=== PATIENT | male | born 1955 | race Caucasian/White ===

== ENCOUNTER 2025-06-25 11:27 | Outpatient (AMB) | payer MEDICARE, OTHER, SELFPAY ==
--- OUTSIDE RECORDS SUMMARY | 2025-06-23 07:45 | XMS_ITS | Encounter Summary ---
Author Organization [facility] Address [address] [place] [address] Care Team Providers Care Pastry Cook Apprentice Name Role Phone Go Garland MD Primary Care Provider Reason for Visit * Reason Comments Follow-up 6 weeks DM follow up Encounter Details Date Type Department Care Team (Late st Contact Info) Description 06/23/2025 7:45 AM EST Office Visit Endocrinology - [place] [address] [place] [address] Chasity Pham PA [address] [place] [address] Type 2 diabetes mellitus with neurological manifestations, controlled (CMS/HCC V24, CMS/HCC V28) (Primary Dx); Hypothyroidism, unspecified type; Hypertension, unspecified type; Morbid obesity (CMS/HCC V24, CMS/HCC V28) Social History Tobacco Use Types Packs/Day Years Used Date Smoking Tobacco: Former Cigarettes 2 46.5 0 1965 - 07/31/2011 Smokeless Tobacco: Never Alcohol Use Standard Drinks/Week Comments Yes 0 (1 standard drink = 0.6 oz pur e alcohol) Housing Instability Answer Date Recorde d Are you worried that in the next 2 months you may not have stable housing? No 11/01/2024 Food Access & Nutrition Answer Date Rec orded Do you have access to a vari ety of food including fruits and vegetables? Yes 11/01/2024 Health Literacy Answer Date Recorded How often do you need to hav e someone help you when you read instructions, pamphlets, or other written material from your doctor or pharmacy? Never 11/01/2024 Caregiver: How often do you need to have someone help you when you read instructions, pamphlets, or other written material from your doctor or pharmacy? Not on file 11/01/2024 Financial Risk Answer Date Recorded How hard is it for you to pa y for the very basics like food, housing, medical care, and air conditioning / heating? Not very hard 11/01/2024 Transportation Answer Date Recorded Has the lack of transportati on kept you from meetings, work, or from getting things needed for daily living? No Has the lack of transportati on kept you from medical appointments or from getting medications? No 11/01/2024 Social Isolation Answer Date Recorded How often do you feel lonely or isolated from th ose around you? Never 11/01/2024 Food Risk Answer Date Recorded Within the past 12 months we worried whether our food would run out before we got money to buy more. Never true 11/01/2024 Within the past 12 months th e food we bought just didn't last and we didn't have money to get more. Never true 11/01/2024 Dependent Care Answer Date Recorded Do you need help finding or paying for care for your loved ones. For example, childhood teacher or elderly care for an older adult? No 11/01/2024 Education Answer Date Recorded Do you think completing more education or training, like finishing a GED, going to college, or learning a trade, would be helpful for you? No 11/01/2024 Employment and Income Answer Date Recor ded During the last four weeks, have you been actively looking for work? No 11/01/2024 Living Situation Answer Date Recorded What is your living situation? Unrecognized valu e 11/01/2024 Sex and Gender Information Value Date Recorded Sex Assigned at Not on file Legal Sex Male 7:59 PM EST Gender Identity Not on file Sexual Orientation Not on file documented as of this encounter Last Filed Vital Signs Vital Sign Reading Time Taken Comments Blood Pressure 118/69 06/23/2025 7:54 AM EST Pulse 68 06/23/2025 7:54 AM EST Temperature - - Respiratory Rate - - Oxygen Saturation - - Inhaled Oxygen Concentration - - Weight 111 kg (245 lb) 06/23/2025 7:54 AM EST Height - - Body Mass Index 34.17 04/17/2025 8:56 AM EDT documented in this encounter Progress Notes * TIFFANY Edwards - 06/23/2025 7:45 AM EST CHIEF COMPLAINT: Follow-up (6 weeks DM follow up ) IDENTIFIER: Tyson Matt is a 70 y.o. old male HPI: Patient is a 70-year-old male presents today for diabetes Follow up. With diabetes type 2. Has not used insulin therapy in the past Has been a diabetic for more than 5 years. Some family history of type 2 diabetes Denies any recent hospitalization as a result of diabetes, no pancreatitis, gastroparesis. Also with hypertension, paroxysmal atrial fibrillation, morbid obesity, GERD, nephrolithiasis, COPD/asthma. Current diabetic regimen: Metformin 1000 mg once daily Ozempic 2mg one weekly Did not tolerate Mounjaro well, due to constipation. He lost 5 pounds within a week after starting medication. He wants to consider going back on Mounjaro however wishes to hold off until next year. Patient has not been checking sugars routinely. A1c of 6.3% 2 months ago. Current was reading at 137, patient had coffee this morning. BMI 35.17, patient would like to lose more weight. He asks about Mounjaro. Does not work formally exercise but active during the day. Hypertension treated with amlodipine, olmesartan. BP today at 118/69 Not on statins. LDL at 85 with a total cholesterol of 194 Subclinical hypothyroidism- not on levothyroxine. Lab Results Component Value Date TSH 2.75 04/17/2025 Lab Results Component Value Date HGBA1C 6.3 04/17/2025 ROS: GENERAL: No malaise HEENT: No changes in hearing or vision RESPIRATORY: No cough, wheezing or shortness of breath CARDIOVASCULAR: No chest pain, leg swelling or palpitations GI: No abdominal discomfort ENDO: see HPI NEURO: No persistent headache, syncope PAST MEDICAL HISTORY: Patient Active Problem List Diagnosis Date Noted COVID 09/29/2024 Cervical spinal stenosis 06/12/2023 DISH (diffuse idiopathic skeletal hyperostosis) 09/12/2022 Hypothyroidism 06/03/2022 Ribs, multiple fractures 10/19/2021 Cervical radiculopathy 03/25/2021 Nontraumatic complete tear of right rotator cuff 04/27/2020 Chronic patellofemoral pain of right knee 03/31/2020 Traumatic complete tear of right rotator cuff 01/13/2020 Lumbar radicular pain 12/30/2019 Allergic rhinitis 07/18/2019 Arthritis of right ankle 04/11/2019 Arthritis of knee, right 11/29/2018 Primary osteoarthritis of both knees 11/13/2018 Vitamin deficiency 09/18/2018 Type 2 diabetes mellitus with neurological manifestations, controlled ([facility] V24, [facility] V28) 02/28/2018 Hematuria, microscopic 05/08/2015 Asthma 12/09/2014 Diverticulosis 12/09/2014 Hypertension 12/09/2014 Morbid obesity ([facility] V24, [facility] V28) 12/09/2014 PAF (paroxysmal atrial fibrillation) ([facility] V24, [facility] V28) 12/09/2014 COPD (chronic obstructive pulmonary disease) ([facility] V24, [facility] V28) 10/21/2014 GERD (gastroesophageal reflux disease) 10/21/2014 Hemothorax on right 10/21/2014 Nephrolithiasis 10/21/2014 Past Surgical History: Procedure Laterality Date COLONOSCOPY KNEE SURGERY Right PROCEDURE: HISTORICAL KNEE SURGERY OTHER SURGICAL HISTORY PROCEDURE: PUNCTURE, DRAINAGE OF CHEST TONSILLECTOMY PROCEDURE: HISTORICAL TONSILLECTOMY TURP / TRANSURETHRAL INCISION / DRAINAGE PROSTATE PROCEDURE: HISTORICAL TURP; COMMENT: 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 SOCIAL HISTORY: Social History Tobacco Use Smoking status: Former Current packs/day: 0.00 Average packs/day: 2.0 packs/day for 46.5 years (93.0 ttl pk-yrs) Types: Cigarettes Start date: 1965 Quit date: 07/31/2011 Years since quittin.9 Smokeless tobacco: Never Substance Use Topics Alcohol use: Yes FAMILY HISTORY: Family History Problem Relation Name Age of Onset Parkinson's Disease Mother Diabetes Father 39 Stroke at 39 Diabetes Sister half sisters x 4 No Known Problems Son Coronary artery disease Maternal Grandfather Liver cancer Aunt Family Status Relation Name Status Mother Alive Father Sister half sisters x 4 Alive x4 Son Alive MGF (Not Specified) Aunt (Not Specified) No partnership data on file MEDICATIONS DISCONTINUED/REORDERED: There are no discontinued medications. ACTIVE MEDICATIONS: Outpatient Medications Marked as Taking for the 06/23/25 encounter (Office Visit) with TIFFANY Edwards Medication Sig Dispense Refill albuterol 2.5 mg /3 mL (0.083 %) nebulizer solution Take 1 Vial by nebulization every 4 hours as needed for Wheezing or Shortness of Breath for up to 30 days. albuterol HFA (PROAIR HFA ; PROVENTIL HFA ; VENTOLIN HFA) 90 mcg/actuation inhaler Inhale 2 puffs into the lungs. blood-glucose sensor (HoppitStyle Cris 3 Plus Sensor) device Change sensor every 15 days. Not covered by insurance, will pay out of pocket, will use coupon 2 each 11 levalbuterol (XOPENEX) 0.63 mg/3 mL nebulizer solution Take 1 Ampule by nebulization every 4 hours as needed for Wheezing. lisinopriL (PRINIVIL,ZESTRIL) 5 mg tablet TAKE 1 TABLET BY MOUTH 1 TIME EACH DAY. 90 tablet 1 metFORMIN (GLUCOPHAGE) 1,000 mg tablet TAKE 1 TABLET BY MOUTH TWICE DAILY WITH MEALS 180 tablet 3 metoprolol succinate (TOPROL-XL) 25 mg 24 hr tablet Take 0.5 tablets (12.5 mg total) by mouth 1 (one) time each day. Do not crush or chew. omeprazole (PriLOSEC) [address] capsule Take 1 capsule (20 mg total) by mouth 1 (one) time each day. semaglutide (Ozempic) 2 mg/dose (8 mg/3 mL) injection pen Inject 2 mg under the skin every 7 (seven) days. 3 mL 3 Symbicort 160-4.5 mcg/actuation inhaler INHALE 2 PUFFS INTO THE LUNGS EVERY 12 HOURS FOR 30 DAYS. THIS MEDICATION HAS INHALER STEROID: RINSE MOUTH WITH WATER AND EXPECTORATE AFTER EACH DOSE TO PREVENT ORAL/ESOPHAGEAL CANDIDIASIS OR FUNGAL INFECTION. 10.2 each 11 ALLERGIES: Sulfa (sulfonamide antibiotics) PHYSICAL EXAM: Blood pressure 118/69, pulse 68, weight 111 kg (245 lb). Body mass index is 34.17 kg/m??. BMI is greater than 25.0 (above the normal range) - see Plan APPEARANCE: Alert and in no acute distress HEART: RRR LUNG: clear to auscultation NEURO: Awake, alert LABS: Lab Results Component Value Date HGBA1C 6.3 04/17/2025 HGBA1C 6.4 01/15/2025 HGBA1C 6.9 (H) 10/14/2024 Lab Results Component Value Date MICROALBUR 22.4 10/14/2024 LDLCALC 85 10/14/2024 CREATININE 1.01 04/01/2025 MICROALBCREA 8 10/14/2024 Lab Results Component Value Date GLUCOSE 137 06/23/2025 IMAGING: IMPRESSION: 1. Type 2 diabetes mellitus with neurological manifestations, controlled ([facility] V24, [facility] V28) 2. Hypothyroidism, unspecified type 3. Hypertension, unspecified type 4. Morbid obesity ([facility] V24, [facility] V28) PLAN: Diabetes, check A1c next month. Monitor microalbumin urine No change to metformin and Ozempic. Diabetic diet discussed--, cutting back on carbohydrates avoiding sugary snacks and drinks, starchyvegetables. Add lean protein to diet along with healthy fats and fiber. Engage in routine exercise 20 minutes a day x5 days a week. Blood pressure control is reasonable. Low-salt diet. Negative microalbumin urine previously, recheck again. Not on statins. Low-fat diet. Recheck fasting lipids before next visit Approaches towards weight loss are discussed, including burning more calories than one takes in by frequent, small meals, portion control and avoiding eating before bedtime. Subclinical hypothyroidism, not on levothyroxine. Continue to monitor thyroid function. Myself and my colleagues maintained a long-term, longitudinal relationship with this patient, overseeing care of chronic conditions including diabetes, hyperlipidemia and hypertension. This care relationship has significantly influence my decision making and treatment plans during today's encounter. Returning in 4 months for revaluation of diabetes. Medication and lab orders: Orders Placed This Encounter Procedures Hemoglobin A1c Thyroid stimulating hormone Basic metabolic panel Lipid panel with reflex to direct LDL Microalbumin creatinine urine ratio Thyroid stimulating hormone with reflex to free t4 and free t3 POC glucose manually resulted None TIFFANY Downs on 06/23/2025 at 8:46 AM EST documented in this encounter Plan of Treatment Upcoming Encounters Date Type Department Care Team (Late st Contact Info) Description 07/09/2025 8:15 AM EST Office Visit Orthopedic Surgery - [place] [address] [facility] [address] [place] [phone] David Lagos, DPCyril 175 [facility] [place] [address] [place] [address] 08/06/2025 8:00 AM EST Office Visit Internal Medicine - [address] [address] Go Garland MD [address] [place] [id number] 10/15/2025 8:30 AM EDT Office Visit Endocrinology [facility] [address] [place] [address] Chasity Pham PA [address] [place] [address] Scheduled Orders Name Type Priority Associated Diagnoses Orde r Schedule Hemoglobin A1c Lab Routine Type 2 diabetes mellitus with neurological manifestations, controlled ([facility] V24, [facility] V28) Expected: 07/17/2025, Expires: 06/23/2026 Thyroid stimulating hormone Lab Routine Type 2 diabetes mellitus with neurological manifestations, controlled ([facility] V24, [facility] V28) Expected: 09/23/2025, Expires: 06/23/2026 Basic metabolic panel Lab Routine Type 2 diabetes mellitus with neurological manifestations, controlled ([facility] V24, CMS/HCC V28) Expected: 09/23/2025, Expires: 06/23/2026 Lipid panel with reflex to direct LDL Lab Routine Type 2 diabetes mellitus with neurological manifestations, controlled ([facility] V24, CMS/[facility] V28) Expected: 09/23/2025, Expires: 06/23/2026 Microalbumin creatinine urine ratio Lab Routine Type 2 diabetes mellitus with neurological manifestations, controlled (CMS/[facility] V24, CMS/[facility] V28) Expected: 09/23/2025, Expires: 06/23/2026 Thyroid stimulating hormone with reflex to free t4 and free t3 Lab Routine Hypothyroidism, unspecified type Expected: 09/23/2025, Expires: 06/23/2026 documented as of this encounter Procedures Procedure Name Priority Date/Time Associated Diagnosis Comments POC GLUCOSE Routine 06/23/2025 8:02 AM EST Type 2 diabetes mellitus with neurological manifestations, controlled ([facility] V24, [facility] V28) documented in this encounter Results * POC glucose manually resulted (06/23/2025 8:02 AM EST) Glucose POC 137 mg/dL Blood Capillary blood specimen / Unknown 06/23/2025 8:02 AM EST Chasity ALLEN POINT OF CARE TEST ENTER/EDIT OR DERABLES Final Result documented in this encounter Visit Diagnoses Diagnosis Type 2 diabetes mellitus with neurological manifestations, controlled ([facility] V24, [facility] V28)- Primary Type II or unspecified type diabetes mellitus with neurological manifestations, not stated as uncontrolled Hypothyroidism, unspecified type Hypertension, unspecified type Morbid obesity ([facility] V24, [facility] V28) Morbid obesity documented in this encounter Additional Health Concerns Assessment Noted Time PHQ-9 Depression Total Score: 0 03/25/20 25 11:05 AM EDT documented as of this encounter Care Teams Pastry Cook Apprentice Relationship Specialty Start Date End Date Go Garland MD [address] [place] [address] PCP - General Internal Medicine 08/28/24 documented as of this encounter
--- NOTE | 2025-06-25 11:28 | A.PHYSOV_ITS ---
Vital Signs 06/25/25 11:34 Height 5 ft 11 in Weight 240 lb BMI 33.5 Intake Visit Reasons: MRI followup Intake Note: Patient is a 70 year old male here for MRI review. 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 The patient reports that back pain has been fine for the last couple of weeks, though it is slightly worse in the L3-L4 and L4-L5 regions. An MRI of the back showed mostly mild findings, with moderate left neuroforaminal stenosis. Back pain seems to improve with decreased activity. The patient has a history of neck issues, with a prior X-ray showing disc space narrowing at C5-6 and C6-7. Previously, the patient experienced numbness in the arm consistent with a pinched nerve when placing the arm under a pillow, but this has resolved. Neck pain is currently good. The patient notes a history of a rotator cuff tear of the supraspinatus and infraspinatus in one shoulder, and a supraspinatus tear in the other, causing problems with lifting objects high. The patient presents with elbow pain and requests an injection. 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 He has a pain level today of 7/10. Pain Description - Back pain: Located at L3-4 and L4-5, described as a little worse but not horrible. - Elbow pain: The patient identifies two tender spots, one of which is described as a 10/10 on the pain scale. - Right shoulder pain: The patient notes soreness and experiences pain when lifting something real high. - Neck pain: The patient's neck pain is reported as good. Procedure Right subacromial injection 06/25/2025 Right tennis elbow injection 06/25/2025 [facility] Surgical History (Updated 06/21/25 @ 12:51 by Sara Rubio MA) H/O: knee surgery Social History Alcohol intake: current Alcohol intake frequency: holidays/special occasions only Patient Tobacco Use Status: Former Tobacco user Review of Systems Narrative Review of Systems - Neurological: Reports a history of migraines, but has not had one since April. - Reports a history of a pinched nerve sensation in the arm, which has since resolved. - Musculoskeletal: Reports back pain, elbow pain, and shoulder pain. - Denies current significant neck pain. Physical Exam Exam Exam: Physical Exam Cervical Spine: He is tender to the right upper trapezius. He is otherwise nontender. Full range of motion. Special Tests: Axial Compression test: Negative Spurlings test: Negative Lhermitte's sign is Negative Upper Extremities: Full range of motion bilateral upper extremities. Patient does have a positive empty can test. Positive impingement testing. Full range of motion of his elbow wrist and hand. He is tender to the lateral epicondyle of the right elbow. Neuro: Sensation: Intact to upper extremities bilateral to light touch Strength C5 (Elbow Flexion): 5/5 on the left and 5/5 on the right. C6 (Elbow Ext): 5/5 on the left and 5/5 on the right. C7 (Elbow Ext): 5/5 on the left and 5/5 on the right. C8 (Finger Flex): 5/5 on the left and 5/5 on the right. T1 (Finger Abd/Add): 5/5 on the left and 5/5 on the right. DTR: C5 (Biceps): Left 2 Right 2 C6 (Brachioradialis): Left 1 Right 1 C7 (Triceps): Left 2 Right 2 Rivera sign: Negative No pathologic clonus. No involuntary movement. Lumbar Spine: Examination of his lumbar spine, there is no visible swelling or deformity. He is tender to lower lumbar facets. He is otherwise nontender. Fu ll range of motion of his lumbar spine. Special Tests: Lhermittes sign was negative Heel Toe walk is normal Left straight leg raise: Negative Right straight leg raise: Negative Special tests Radha test is negative Ganslen's test is negative SI Joint compression test negative Nahid test negative Piriformis stretch is negative Lower Extremities: Full range of motion bilateral lower extremities. No calf pain or edema. Neuro: Sensation: Intact to lower extremities bilaterally Strength L2 (Psoas): 5/5 on the left and 5/5 on the right. L3 (Quads): 5/5 on the left and 5/5 on the right. L4 (Ant tibialis): 5/5 on the left and 5/5 on the right. L5 (EHL) 5/5 on the left and 5/5 on the right. S1 (Gastroc): 5/5 on the left and 5/5 on the right. DTR L4: (Patellar) Left 2 Right 2 S1: (Achilles) Left 2 Right 2 Babinski Downgoing No pathologic clonus. No involuntary movement. Vital Signs: BMI result Body Mass Index 33.5 Office Procedures AMB Elbow Injection Elbow Joint injection Procedure Details: Right Lateral Epicondylitis injection: Patient was educated about the risks, complications and benefits of the procedure including but not limited to incre ased serum glucose, fat atrophy, pigment augmentation, infection, nerve damage, bleeding, tendon/ligament injury and pain. Questions were answered at this time. Verbal consent is obtained and the patient is eager to proceed. Patient was laid supine with the arm across the abdomen and 90 degrees of left elbow flexion with the forearm in pronation the point of maximal tenderness was identified and marked at lateral epicondyle. The patient was cleansed with Betadine over this area. Ethyl chloride was then used to desensitize the skin. Patient was then injected with 20 mg of Kenalog and 0.5 mL 2% lidocaine. The area was cleansed with an alcohol prep and a Band-Aid was applied. The patient tolerated the procedure well without immediate complication. Elbow Injection : Right Procedure code (CPT) selection complete AMB Shoulder Injection AMB Shoulder Injection Procedure Details: Right Subacromial injection Procedure: The patient was educated about risks, complications and benefits including but not limited to increased serum glucose, infection, nerve damage, bleeding, tendon/ligament damage and pain. We agree with a subacromial injection is the next best step in the treatment plan. Verbal consent was obtained. Using aseptic technique, the skin was cleansed with Betadine. Ethyl chloride was used to desensitize the skin. Using a posterior approach, 40 mg of Kenalog and 3 mL 2% lidocaine were injected using a 25-gauge inch and a half needle into the subacromial space. The patient tolerated the procedure well without immediate complication. Postinjection instructions were given. Shoulder Injection - : Right All charges added?: Procedure code (CPT) selection complete Office Meds Kenalog 40 mg/mL suspension for injection Performing Provider: TIFFANY Abdul Performing Location: [facility] Administered by: TIFFANY Abdul on 06/25/25 12:51 Dose Route Admin Location Dispensed Lot Number Expiration Date [facility] [employer] 20 mg Tendon Sheath Inj. 1 mL [id number] [employer] Total Dispensed Waste 1 mL 50 % lidocaine (PF) 20 mg/mL (2 %) injection solution Performing Provider: TIFFANY Abdul Performing [facility] Administered by: TIFFANY Abdul on 06/25/25 12:51 Dose Route Admin Location Dispensed Lot Number Expiration Date [facility] [employer] 10 mg IM 50 mL [id number] Total Dispensed Waste 50 mL 0 % Kenalog 40 mg/mL suspension for injection Performing Provider: TIFFANY Abdul Performing Location: [facility] Administered by: TIFFANY Abdul on 06/25/25 12:50 Dose Route Admin Location Dispensed Lot Number Expiration Date [facility] [employer] 40 mg intra-articular 1 mL [id number] [employer] Total Dispensed Waste 1 mL 0 % lidocaine (PF) 20 mg/mL (2 %) injection solution Performing Provider: TIFFANY Abdul Performing Location: [facility] Administered by: TIFFANY Abdul on 06/25/25 12:50 Dose Route Admin Location Dispensed Lot Number Expiration Date [facility] [employer] 60 mg intra-articular 50 mL [id number] Total Dispensed Waste 50 mL 0 % Assessment & Plan Assessment & Plan (1) Lumbar radiculopathy: Code(s): M54.16 - Radiculopathy, lumbar region Category: Medical (2) Impingement of right shoulder: Code(s): M25.811 - Other specified joint disorders, right shoulder Category: Medical (3) Right tennis elbow: Code(s): M77.11 - Lateral epicondylitis, right elbow Category: Medical Plan Pain Management - Analgesia: The patient requests and receives injections for elbow and shoulder pain. - Activities of Daily Living: Back pain is better with rest. - Shoulder pain interferes with lifting heavy objects. - Migraines have resolved since stopping tractor driving. - Aberrant Drug-Seeking Behaviors: None reported or observed. Plan Patient was informed and verbally consented to the use of an ambient scribe for clinic note documentation during this visit. 1. Low Back Pain The patient's lumbar MRI findings are not severe enough to warrant surgery. An injection is an option if the patient becomes interested, but for now, the plan is to continue with conservative management as the back pain is manageable. 2. Cervicalgia An MRI of the neck was offered to further evaluate the x-ray findings of disc space narrowing at C5-6 and C6-7. As the patient is currently doing well, we will defer the MRI for now. 3. Right Elbow Pain The patient consented to and received an injection in the right elbow for lateral epicondylitis. A second tender area over the triceps was intentionally not injected to avoid a potential triceps tear. 4. Right Shoulder Pain Given the patient's history of a rotator cuff tear and current symptoms, the patient received an injection into the subacromial space of the right shoulder. He will continue his home exercise plan and medications as prescribed. Follow- up with our office as needed. Thank you for allowing me to participate in the care of your patient. Orders: Orders AMB Shoulder Injection Today M25.811 - Other specified joint disorders, right shoulder AMB Elbow Injection Today M77.11 - Lateral epicondylitis, right elbow Coding Level of Care Code Tele Est Pt Level 4 (91968) Diagnoses Lumbar radiculopathy M54.16 Impingement of right shoulder M25.811 Right tennis elbow M77.11 CPT Codes Elbow Joint injection - Ankle Joint Injection : Right ([id number]) AMB Shoulder Injection - Hip/Bursa Injection - : Right ([id number])
[2025-06-25 11:34] VITALS: BMI 33.5
--- OUTSIDE RECORDS SUMMARY | 2025-06-25 14:23 | XMS_ITS | Encounter Summary ---
Author Organization [facility] Address [address] [place] [address] Care Team Providers Care Clinical Manager Name Role Phone Go Garland MD Primary Care Provider [phone] Encounter Details Date Type Department Care Team (Late st Contact Info) Description 06/03/2025 Lab Requisition [facility] - Main Lab [address] [place] [phone] Lino Mendiola, PA [address] [place] [phone] Calculus of kidney Social History Tobacco Use Types Packs/Day Years [...] care for your loved ones. 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 [...] on file documented as of this encounter Plan of Treatment Upcoming Encounters Date Type Department Care Team (Late st Contact Info) Description 07/09/2025 8:15 AM EST Office Visit Orthopedic Surgery - [place] [address] [phone] David Lagos, DPCyril [address] [facility] [address] [place] [address] 08/06/2025 8:00 AM EST Office Visit Internal Medicine - [facility] [address] [place], [place] [phone] Go Garland MD [address] [place] [phone] 10/15/2025 8:30 AM EDT Office Visit Endocrinology - [place] [address] [place] [phone] Chasity Pham PA [address] [place] [address] documented as of this encounter Procedures Procedure Name Priority Date/Time Associated Diagnosis Comments PARATHYROID HORMONE INTACT Routine 06/03/2025 1:27 PM EST [facility] documented in this encounter Results * Parathyroid hormone intact (06/03/2025 1:27 PM EST) PTH 38.1 18.5 - 88.0 pcg/mL LAB CHEMISTRY METHOD 06/03/2025 7:26 PM EST [facility] Blood Venous blood specimen / Unknown 06/03/2025 1:27 PM EST 06/03/2025 5:51 PM EST us Lino ALLEN LAB BLOOD ORDERABLES Final Res ult [facility] [address] [place] [address], documented in this encounter Visit Diagnoses Diagnosis Calculus of kidney documented in this encounter Additional Health Concerns Assessment Noted Time PHQ-9 Depression Total Score: 0 03/25/20 11:05 AM EDT documented as of this encounter Care Teams Clinical Manager Relationship Specialty Start Date End Date Go Garland MD [address] [place] [phone] PCP - General Internal Medicine 08/28/24 documented as of this encounter
--- OUTSIDE RECORDS SUMMARY | 2025-06-25 14:23 | XMS_ITS | Clinical Summary ---
Author Organization [address] Building Address [address] [place] [phone] Phone Care Team Providers Care Manuscripts Curator Name Role Phone Go Garland MD Primary Care Provider [phone] Allergies Active Allergy Reactions Criticality Noted Date Comments Sulfa (Sulfonamide Antibiotics) 11/28 itchiness Medications albuterol HFA (PROAIR HFA ; PROVENTIL HFA ; VENTOLIN HFA) 90 mcg/actuation inhaler Inhale 2 puffs into the lungs. 9 Active albuterol 2.5 mg /3 mL (0.083 %) nebulizer solution Take 1 Vial by nebulization every 4 hours as needed for Wheezing or Shortness of Breath for up to 30 days. 3 Active levalbuterol (XOPENEX) 0.63 mg/3 mL nebulizer solution Take 1 Ampule by nebulization every 4 hours as needed for Wheezing. 3 Active omeprazole (PriLOSEC) [address] capsule Take 1 capsule (20 mg total) by mouth 1 (one) time each day. Active metFORMIN (GLUCOPHAGE) 1,000 mg tablet TAKE 1 TABLET BY MOUTH TWICE DAILY WITH MEALS 180 tablet 3 5 Active lisinopriL (PRINIVIL,ZESTRI L) 5 mg tablet TAKE 1 TABLET BY MOUTH 1 TIME EACH DAY. 90 tablet 1 5 Active Symbicort 160-4.5 mcg/actuation inhaler INHALE 2 PUFFS INTO THE LUNGS EVERY 12 HOURS FOR 30 DAYS. THIS MEDICATION HAS INHALER STEROID: RINSE MOUTH WITH WATER AND EXPECTORATE AFTER EACH DOSE TO PREVENT ORAL/ESOPHAGEAL CANDIDIASIS OR FUNGAL INFECTION. 10.2 each 5 Active metoprolol succinate (TOPROL-XL) 25 mg 24 hr tablet Take 0.5 tablets (12.5 mg total) by mouth 1 (one) time each day. Do not crush or chew. Active blood-glucose sensor (FreeStyle Cris 3 Plus Sensor) deviceIndication s:Type 2 diabetes mellitus with neurological manifestations, controlled (CMS/[facility] V24, CMS/[facility] V28) Change sensor every 15 days. Not covered by insurance, will pay out of pocket, will use coupon 2 each 5 Active semaglutide (Ozempic) 2 mg/dose (8 mg/3 mL) injection penIndications:T ype 2 diabetes mellitus with neurological manifestations, controlled (CMS/[facility] V24, CMS/[facility] V28) Inject 2 mg under the skin every 7 (seven) days. 3 mL 3 5 Active Active Problems Problem Noted Date Diagnosed Date COVID 09/29/2024 Overview (09/30/2024): Covid + 09/29/24 Cervical spinal stenosis 06/12/2023 DISH (diffuse idiopathic skeletal hyperostosis) 09/12/2022 Overview (06/21/2024): Last Assessment & Plan: 67-year-old male has been popping sensation on the left side with CT imaging findings consistent with DISH syndrome. I had a long discussion with him about DISH syndrome in general which eventually seemed understand. Really the only treatment is supportive with weight loss and physical activity as the mainstays. I offered to refer him to a specialist in orthopedics possibly in [place] but he declined. We also discussed weight loss with increased physical activity and decrease caloric intake. He can follow-up with me on an as-needed basis moving forward. Hypothyroidism 06/03/2022 Ribs, multiple fractures 10/19/2021 Overview (06/21/2024): Last Assessment & Plan: He does have right-sided old rib fractures from a previous accident most of which have healed and there do not seem to be any symptoms associated with this. There is 1 that has not completely healed however without symptoms there is no reason to do anything about that and I did discuss this with him. Cervical radiculopathy 03/25/2021 Nontraumatic complete tear of right rotator cuff 04/27/2020 Chronic patellofemoral pain of right knee 2019 Traumatic complete tear of right rotator cuff Lumbar radicular pain 12/30/2019 Allergic rhinitis 07/18/2019 Arthritis of right ankle 04/11/2019 Arthritis of knee, right 11/29/2018 Primary osteoarthritis of both knees 11/13/2018 Vitamin deficiency 09/18/2018 Type 2 diabetes mellitus wit h neurological manifestations, controlled ([facility] V24, [facility] V28) 02/28/2018 Overview (06/21/2024): A1c 7.5 02/28/18 Hematuria, microscopic 05/08/2015 Asthma 12/09/2014 Diverticulosis 12/09/2014 Hypertension 12/09/2014 Morbid obesity ([facility] V24, [facility] V28) 2014 PAF (paroxysmal atrial fibri llation) ([facility] V24, [facility] V28) 12/09/2014 Overview (06/21/2024): Hospital discharge summary [facility] 12/22/2011 COPD (chronic obstructive pu lmonary disease) ([facility] V24, [facility] V28) 10/21/2014 GERD (gastroesophageal reflux disease) 5 Overview (06/21/2024): FEV1 61% Follows with Dr. Hooker Hemothorax on right 10/21/2014 Overview (06/21/2024): 2012 From rib fracture, coughing Nephrolithiasis 10/21/2014 Encounters Date Type Department Care Team Description 06/23/2025 7:45 AM EST Office Visit [address] [phone] Chasity Pham PA Type 2 diabetes mellitus with neurological manifestations, controlled ([facility] V24, [facility] V28) (Primary Dx); Hypothyroidism, unspecified type; Hypertension, unspecified type; Morbid obesity ([facility] V24, [facility] V28) 06/04/2025 3:43 PM EST - 06/04/2025 11:59 PM EST Hospital Encounter [facility] [address] [place] [id number] Cervicalgia; Radiculopathy, cervical region Discharge Disposition: Home or Self Care 06/03/2025 Lab Requisition [facility] - Main Lab [address] [facility] [place] [phone] Lino Mendiola PA Calculus of kidney 05/28/2025 12:27 PM EDT - 05/28/2025 11:59 PM EDT Hospital Encounter [facility]ray [facility] [address] [place], [place] [phone] Cervicalgia Discharge Disposition: Home or Self Care 05/07/2025 8:15 AM EDT Office Visit Orthopedic Surgery - [place] [address] [facility] [address] [place] [phone] David Lagos DPM Controlled type 2 diabetes with neuropathy ([facility] V24, [facility] V28) (Primary Dx); Arthritis of both feet; Lumbosacral radiculopathy; Arthritis of right ankle 04/17/2025 9:00 AM EDT Office Visit Endocrinology [address] [phone] Yaquelin Tijerina PA Type 2 diabetes mellitus with neurological manifestations, controlled ([facility] V24, [facility] V28) (Primary Dx); Hypothyroidism, unspecified type; Secondary hypertension 04/01/2025 8:15 AM EDT Office Visit Internal Medicine - [facility] [address] [place], [place] [phone] Sabrina Aguirre, BARBY Chronic pain of right ankle (Primary Dx); Chronic left-sided low back pain without sciatica; Kidney stone on right side 03/26/2025 8:45 AM EDT Office Visit Orthopedic Surgery - [place] [address] [place] [phone] David Lagos DPM Controlled type 2 diabetes with neuropathy ([facility] V24, [facility] V28) (Primary Dx); Arthritis of both feet; Lumbosacral radiculopathy; Arthritis of right ankle from Last 3 Months Immunizations Immunization Administration Dates Next Due Influenza Quadravalent, MDCK , 0.5ml, preservative free (Flucelvax) 6mo and older 06/04/2018 Influenza Quadravalent, MDCK , 0.5ml, with preservative (Flucelvax) 6mo and older 06/06/2017 Influenza trivalent, 0.5mL ( Fluad) 65yo and older 05/19/2025,05/14/2023,06/02/2022,06/28,04/27/2020,06/05/2019 Influenza trivalent, 0.5mL ( Fluzone High-dose) 65yo and older 06/12/2024 Influenza trivalent, 0.5mL, preservative free (Fluarix; FluLaval; Fluzone) ages 6mo and older (Afluria) 3 years and older 04/18/2016,04/22/2015,04/24/2014 [employer] SARS-CoV-2 COVID-19, mRNA, LNP-S, preservative free 02/10/2022,04/06/2021,02/10/2021,11/10,10/19/2020 Pneumococcal conjugate 13 va lent (Prevnar 13, PCV13) 2mo and older 04/22/2015 Pneumococcal polysaccharide 23 valent (Pneumovax 23) 2yo and older 04/18/2016 RSV, bivalent, protein subun it RSVpreF, 0.5mL, Preservative Free (Arexvy) 50yo and older 07/21/2023 Tdap Tetanus diptheria acell ular pertussis (Boostrix; Adacel) 7yo and older 06/19/2018,08/04/2006 Zoster Live 11/12/2014 Zoster recombinant (Shingrix ) 19yo and older 11/17/2021,10/29/2021,08/31/2021,08/03 Surgical History Surgery Date Site/Laterality Comments TURP / TRANSURETHRAL INCISIO N / DRAINAGE PROSTATE PROCEDURE: HISTORICAL TURP; COMMENT: x 2 OTHER SURGICAL HISTORY PROCEDURE: PUNCTURE, DRAINAGE OF CHEST KNEE SURGERY Right PROCEDURE: HISTORICAL KNEE SURGERY TONSILLECTOMY PROCEDURE: HISTORICAL TONSILLECTOMY WATCHMAN IMPLANT COLONOSCOPY Medical History Medical History Date Comments COPD (chronic obstructive pu lmonary disease) ([facility] V24, [facility] V28) 10/21/2014 DX:COPD (chronic o bstructive pulmonary disease) ([facility]) GERD (gastroesophageal reflux disease) 10/21/2014 DX:GERD (gastroesophageal reflux disease) Nephrolithiasis 10/21/2014 DX:Nephrolithias is Asthma 12/09/2014 DX:Asthma Anemia 12/09/2014 DX:Anemia Diverticulosis 12/09/2014 DX:Diverticulosi s Hypertension 12/09/2014 DX:Hypertension Morbid obesity ([facility] V24, [facility] V28) 12/09/2014 DX:Morbid obesity ([facility]) DM type 2 (diabetes mellitus , type 2) ([facility] V24, [facility] V28) 12/09/2014 DX:DM type 2 (diabetes tina itus, type 2) ([facility]) Hemothorax on right 10/21/2014 DX:Hemothora x on right; COMMENT: 2011 From rib fracture, coughing Atrial fibrillation, chronic ([facility] V24, [facility] V28) Family History Medical History Relation Name Comments Liver cancer Aunt Diabetes Father Stroke at 39 Coronary artery disease Maternal Grandfather Parkinson's Disease Mother Diabetes Sister half sisters x 4 No Known Problems Son Relation Name Status Comments Aunt Father Maternal Grandfather Mother Alive Sister half sisters x 4 Alive x4 Son Alive Social History Tobacco Use Types Packs/Day Years Used Date Smoking Tobacco: Former Cigarettes 2 46.5 0 1965 - 07/31/2011 Smokeless Tobacco: Never Tobacco Cessation:Counseling Given: Not Answered Alcohol Use Standard Drinks/Week Comments Yes 0 [...] care for your loved ones. For example, children's minister or elderly care for an older adult? [...] on file Sexual Orientation Not on file Obstetrics History Last Filed Vital Signs Vital Sign Reading Time Taken Comments Blood Pressure 118/69 06/23/2025 7:54 AM EST Pulse 68 06/23/2025 7:54 AM EST Temperature 36.2 C (97.1 F) 04/17/2025 8:56 AM EDT Respiratory Rate - - Oxygen Saturation 97% 10/04/2024 3:46 PM EST Inhaled Oxygen Concentration - - Weight 111 kg (245 lb) 06/23/2025 7:54 AM EST Height 180.3 cm (5' 11 ) 04/17/2025 8:56 AM EDT Body Mass Index 34.17 04/17/2025 8:56 AM EDT Plan of Treatment Upcoming Encounters Date Type Department Care Team (Late st Contact Info) Description 07/09/2025 8:15 AM EST Office Visit Orthopedic Surgery - [place] [phone] [phone] David Lagos, DPCyril [address] [phone] 08/06/2025 8:00 AM EST Office Visit Internal Medicine - [address] [phone] Go Garland MD [address] [place] [phone] 10/15/2025 8:30 AM EDT Office Visit Endocrinology - [address] [phone] Chasity Pham PA [address] [place] [phone] Health Maintenance Due Date Last Done Comments Diabetes: Annual Foot Exam 01/24/1965 Pneumococcal Vaccine: 50+ Years (3 of 3 - PCV20 or PCV21) 04/18/2021 04/18/2016, 04/22/2015 COVID-19 Vaccine ( season) 2025 07/21/2023, 07/06/2022, 02/10/2022, Additional history exists Diabetes: Annual Retina Eye Exam 07/25/2025 07/25/2024, 07/11/2024, 07/10/2024 Lung Cancer Screening (Low Dose CT) 08/29/2025 08/29/2024, 08/28/2023, 08/25/2022, Additional history exists Diabetes: Annual Urine Albumin-Creatinine Ratio (uACR) 10/14/2025 10/14/2024, 08/30/2023 Diabetes: Blood Sugar Control Test (HGBA1C) 10/15/2025 04/17/2025, 01/15/2025, 10/14/2024, Additional history exists Medicare Annual Wellness Visit 11/01/2025 11/01/2024 Social Influencers of Health Screening 11/01/2025 11/01/2024 Diabetes: Annual GFR (Glomerular Filtration Rate) 04/01/2026 04/01/2025, 10/14/2024, 07/10/2024, Additional history exists Falls Risk Assessment 04/01/2026 04/01/2025 Hypertension/CHF/CAD Annual BMP Blood Test 04/01/2026 04/01/2025, 10/14/2024, 07/10/2024, Additional history exists DTaP,Tdap,and Td Vaccines (3 - Td or Tdap) 06/19/2028 06/19/2018, 08/04/2006 Cholesterol Screening (Lipid Panel) 10/14/2029 10/14/2024, 04/10/2024, 04/10/2024 Colorectal Cancer Screening: Colonoscopy 09/18/2033 09/18/2023 Hepatitis C Screening Completed 06/06/2017 Abdominal Aortic Aneurysm (AAA) Screen Completed 04/16/2020, 04/16/2020 Zoster Vaccines Completed 11/17/2021, 04/0 07/2021, 08/31/2021, Additional history exists RSV Immunization Adult Patients Completed 07/21/2023 Depression Screening Completed 03/25/2025 Influenza Vaccine Completed 05/19/2025, , 05/14/2023, Additional history exists HIB Vaccines Aged Out No longer eligi ble based on patient's age to complete this topic HPV Vaccines Aged Out No longer eligi ble based on patient's age to complete this topic Hepatitis A Vaccines Aged Out No long er eligible based on patient's age to complete this topic Hepatitis B Vaccines Aged Out No long er eligible based on patient's age to complete this topic IPV Vaccines Aged Out No longer eligi ble based on patient's age to complete this topic MMR Vaccines Aged Out No longer eligi ble based on patient's age to complete this topic Meningococcal ACWY Vaccine Aged Out N o longer eligible based on patient's age to complete this topic Meningococcal B Vaccine Aged Out No l onger eligible based on patient's age to complete this topic RSV Immunization Patients Under 20 months Aged Out No longer eligible based on patient's age to complete this topic Varicella Vaccines Aged Out No longer eligible based on patient's age to complete this topic Procedures Procedure Name Priority Date/Time Associated Diagnosis Comments POC GLUCOSE Routine 06/23/2025 8:02 AM EST Type 2 diabetes mellitus with neurological manifestations, controlled (CMS/[facility] V24, CMS/[facility] V28) MR LUMBAR SPINE WO CONTRAST Routine 06/04/2025 4:18 PM EST Cervicalgia Radiculopathy, cervical region PARATHYROID HORMONE INTACT Routine 06/03/2025 1:27 PM EST Calculus of kidney XR CERVICAL SPINE 4-5 VIEWS Routine 05/28/2025 12:36 PM EDT Cervicalgia HEMOGLOBIN A1C Routine 04/17/2025 9:52 AM EDT Type 2 diabetes mellitus with neurological manifestations, controlled (CMS/HCC V24, CMS/HCC V28) THYROID STIMULATING HORMONE WITH REFLEX TO FREE T4 AND FREE T3 Routine 04/17/2025 9:52 AM EDT Hypothyroidism, unspecified type POC GLUCOSE Routine 04/17/2025 9:00 AM EDT Type 2 diabetes mellitus with neurological manifestations, controlled (CMS/HCC V24, CMS/HCC V28) COMPREHENSIVE METABOLIC PANEL Routine 04/01/2025 12:11 PM EDT Chronic left-sided low back pain without sciatica MICROALBUMIN CREATININE URINE RATIO Routine 10/14/2024 8:59 AM EDT Type 2 diabetes mellitus with neurological manifestations, controlled (CMS/HCC V24, CMS/HCC V28) LIPID PANEL WITH REFLEX TO DIRECT LDL Routine 10/14/2024 8:59 AM EDT Primary hypertension CT LUNG SCREENING Routine 08/29/2024 8:2 6 AM EST Encounter for screening for malignant neoplasm of respiratory organs Personal history of nicotine dependence EXTERNAL DIABETIC RETINA EYE EXAM 07/25/2024 HM COLONOSCOPY Routine 09/18/2023 US ABDOMINAL AORTA REAL TIME SCREEN STUDY AAA Routine 04/16/2020 8:33 AM EDT Personal history of nicotine dependence HEPATITIS C SCREENING Routine 06/06/2017 from Last 3 Months or Most Recently Relevant to Health Maintenance Results * POC glucose manually resulted (06/23/2025 8:02 AM EST) Only the most recent of2 resultswithin the time period is included. Glucose POC 137 mg/dL Blood Capillary blood specimen / Unknown 06/23/2025 8:02 AM EST Chasity ALLEN POINT OF CARE TEST ENTER/EDIT OR DERABLES Final Result * MR Lumbar Spine wo Contrast (06/04/2025 4:18 PM EST) Anatomical Region Laterality Modality L-spine, Spine Magnetic Resonan ce 06/05/2025 3:27 AM EST Impressions 06/05/2025 3:34 AM EST Multilevel lumbar spondylosis, most significant at L3-L4 and L4-L5; progressed from prior -------- FINAL REPORT -------- Dictated By: Thais Hodges Dictated Date: 06/05/2025 03:27 ET Assigned Physician: Thais Hodges Reviewed and Electronically Signed By: Thais Hodges Signed Date: 06/05/2025 03:34 ET Workstation ID: [id number] Transcribed By: Self Edit Transcribed Date: 06/05/2025 03:27 ET Narrative 06/05/2025 3:34 AM EST INDICATION: radiculopathy, cervicalgia, spondylosis COMPARISON: 01/2023 TECHNIQUE: Multiplanar, multisequence MRI was performed of the lumbar spine without IV contrast. FINDINGS: Study assumes 5 lumbar type vertebral bodies. Minimal grade 1 retrolisthesis of L1 on L2, L2 on L3 and anterolisthesis of L4 on L5. Conus terminates at L1. Modic type I changes at L1-L2. Multilevel anterior marginal osteophytes. Multilevel disc desiccation. Cord signal is unremarkable. Specific findings are seen at the following levels: T12-L1:No significant spinal canal stenosis or neural foraminal narrowing on sagittal view. L1-L2:Mild diffuse disc bulge without significant spinal canal stenosis or neural foraminal narrowing; slightly progressed from prior L2-L3:Mild diffuse disc bulge with facet arthropathy without significant spinal canal stenosis or neural foraminal narrowing; progressed from prior L3-L4:Mild diffuse disc bulge with ligamentum flavum infolding and facet arthropathy which effaces the ventral thecal sac and results in mild spinal canal stenosis; similar to prior. Mild bilateral neural foraminal narrowing; slightly progressed from prior. L4-L5:Uncovering of the disc with ligamentum flavum infolding and facet arthropathy which results in mild spinal canal stenosis; progressed from prior and moderate left and mild right neural foraminal narrowing; progressed from prior. L5-S1:Diffuse disc bulge with facet arthropathy without significant spinal canal stenosis. Mild bilateral neural foraminal narrowing. Miscellaneous: Visualized SI joints, paraspinal muscles and retroperitoneum are unremarkable. Procedure Note Thais Hodges MD - 06/05/2025 INDICATION: radiculopathy, cervicalgia, spondylosis COMPARISON: 01/2023 TECHNIQUE: Multiplanar, multisequence MRI was performed of the lumbarspine without IV contrast. FINDINGS: Study assumes 5 lumbar type vertebral bodies. Minimal grade 1retrolisthesis of L1 on L2, L2 on L3 and anterolisthesis of L4 on L5.Conus terminates at L1. Modic type I changes at L1-L2. Multilevelanterior marginal osteophytes. Multilevel disc desiccation. Cord signalis unremarkable. Specific findings are seen at the following levels: T12-L1:No significant spinal canal stenosis or neural foraminal narrowingon sagittal view. L1-L2:Mild diffuse disc bulge without significant spinal canal stenosis orneural foraminal narrowing; slightly progressed from prior L2-L3:Mild diffuse disc bulge with facet arthropathy without significantspinal canal stenosis or neural foraminal narrowing; progressed fromprior L3-L4:Mild diffuse disc bulge with ligamentum flavum infolding and facetarthropathy which effaces the ventral thecal sac and results in mildspinal canal stenosis; similar to prior. Mild bilateral neural foraminalnarrowing; slightly progressed from prior. L4-L5:Uncovering of the disc with ligamentum flavum infolding and facetarthropathy which results in mild spinal canal stenosis; progressed fromprior and moderate left and mild right neural foraminal narrowing;progressed from prior. L5-S1:Diffuse disc bulge with facet arthropathy without significant spinalcanal stenosis. Mild bilateral neural foraminal narrowing. Miscellaneous: Visualized SI joints, paraspinal muscles andretroperitoneum are unremarkable. IMPRESSION: Multilevel lumbar spondylosis, most significant at L3-L4 and L4-L5;progressed from prior -------- FINAL REPORT -------- Dictated By: Thais Hodges Dictated Date: 06/05/2025 03:27 ET Assigned Physician: Thais Hodges Reviewed and Electronically Signed By: Thais Hodges Signed Date: 06/05/2025 03:34 ET Workstation ID: [id number] Transcribed By: Self Edit Transcribed Date: 06/05/2025 03:27 ET Russ ALLEN [facility] MRI PROCEDURES Final Resul t * Parathyroid hormone intact (06/03/2025 1:27 PM EST) PTH 38.1 18.5 - 88.0 pcg/mL LAB CHEMISTRY METHOD 06/03/2025 7:26 PM EST [facility] ([facility] Blood Venous blood specimen / Unknown 06/03/2025 1:27 PM EST 06/03/2025 5:51 PM EST Lino ALLEN LAB BLOOD ORDERABLES Final Res ult [facility] ([facility] [address] [place] [address], * XR Cervical Spine 4-5 Views (05/28/2025 12:36 PM EDT) Anatomical Region Laterality Modality Spine, C-spine Radiographic Mary Alice ging 05/28/2025 5:09 PM EDT Impressions 05/28/2025 5:11 PM EDT Moderate degenerative changes of the cervical spine. -------- FINAL REPORT -------- Dictated By: Jordan Hunt Dictated Date: 05/28/2025 17:09 ET Assigned Physician: Jordan Hunt Reviewed and Electronically Signed By: Jordan Hunt Signed Date: 05/28/2025 17:11 ET Workstation ID: [id number] Transcribed By: Self Edit Transcribed Date: 05/28/2025 17:09 ET Narrative 05/28/2025 5:11 PM EDT HISTORY: pain TECHNIQUE: 4 views of the cervical spine COMPARISON: Cervical spine radiograph from 12/10/2020 FINDINGS: The cervical spine is visualized from C1-C7. Vertebral body height is maintained. Decreased disc height at C5-6, C6-C7 with endplate sclerosis. Moderate-sized anterior osteophytes at the lower cervical spine. The cervical alignment is maintained without spondylolisthesis. Mild neuroforaminal stenosis at multiple levels. Moderate uncovertebral arthropathy. No acute fracture or dislocation is seen. There is no prevertebral soft tissue swelling. Procedure Note Jordan Hunt MD - 05/28/2025 HISTORY: pain TECHNIQUE: 4 views of the cervical spine COMPARISON: Cervical spine radiograph from 12/10/2020 FINDINGS: The cervical spine is visualized from C1-C7. Vertebral body height ismaintained. Decreased disc height at C5-6, C6-C7 with endplate sclerosis.Moderate-sized anterior osteophytes at the lower cervical spine. Thecervical alignment is maintained without spondylolisthesis. Mildneuroforaminal stenosis at multiple levels. Moderate uncovertebralarthropathy. No acute fracture or dislocation is seen. There is noprevertebral soft tissue swelling. IMPRESSION: Moderate degenerative changes of the cervical spine. -------- FINAL REPORT -------- Dictated By: Jordan Hunt Dictated Date: 05/28/2025 17:09 ET Assigned Physician: Jordan Hunt Reviewed and Electronically Signed By: Jordan Hunt Signed Date: 05/28/2025 17:11 ET Workstation ID: [id number] Transcribed By: Self Edit Transcribed Date: 05/28/2025 17:09 ET us Russ ALLEN IMG XR PROCEDURES Final Result * Thyroid stimulating hormone with reflex to free t4 and free t3 (04/17/2025 9:52 AM EDT) TSH 2.75 0.40 - 4.00 mcIU/mL LAB CHEMISTRY METHOD 04/17/2025 12:39 PM EDT [facility] Blood Venous blood specimen / Unknown Venipuncture / Unknown 04/17/2025 9:52 AM EDT 04/17/2025 9:52 AM EDT Yaquelin ALLEN LAB BLOOD ORDERABLES Final Result [facility] [address] [place] [address], [place] [phone] * Hemoglobin A1c (04/17/2025 9:52 AM EDT) Hemoglobin A1C 6.3 <6.5 % LAB CHEMISTRY METHOD 04/17/2025 9:55 PM EDT [facility] Mean Bld Glu Estim. 134 mg/dL LAB CHEMISTRY METHOD 04/17/2025 9:55 PM EDT [facility] Blood Venous blood specimen / Unknown Venipuncture / Unknown 04/17/2025 9:52 AM EDT 04/17/2025 9:52 AM EDT us Yaquelin ALLEN LAB BLOOD ORDERABLES Final Result [facility] [address] [place] [address], * (ABNORMAL) Comprehensive metabolic panel (04/01/2025 12:11 PM EDT) Sodium 134 133 - 145 mmol/L LAB CHEMISTRY METHOD 04/01/2025 6:44 PM EDT [facility] Potassium 4.4 3.5 - 5.5 mmol/L LAB CHEMISTRY METHOD 04/01/2025 6:44 PM [facility] Chloride 98 96 - 110 mmol/L LAB CHEMISTRY METHOD 04/01/2025 6:44 PM [facility] CO2 29 21 - 32 mmol/L LAB CHEMISTRY METHOD 04/01/2025 6:44 PM [facility] Anion Gap 7 3 - 11 LAB CHEMISTRY METHOD 04/01/2025 6:44 PM [facility] Glucose 119(H) 70 - 100 mg/dL LAB CHEMISTRY METHOD 04/01/2025 6:44 PM [facility] BUN 15 5 - 25 mg/dL LAB CHEMISTRY METHOD 04/01/2025 6:44 PM [facility] Creatinine 1.01 0.70 - 1.30 mg/dL LAB CHEMISTRY METHOD 04/01/2025 6:44 PM [facility] eGFR 80 >=60 mL/min/1. 73m2 LAB CHEMISTRY METHOD 04/01/2025 6:44 PM [facility] Comment:Calculation based on the Chronic Kidney Disease Epidemiology Collaboration (CKD-EPI) equation refit without adjustment for race. BUN/Creatinine Ratio 14.9 LAB CHEMISTRY METHOD 04/01/2025 6:44 PM [facility] Calcium 9.4 8.5 - 10.5 mg/dL LAB CHEMISTRY METHOD 04/01/2025 6:44 PM EDT [facility] AST (SGOT) 17 10 - 42 unit/L LAB CHEMISTRY METHOD 04/01/2025 6:44 PM EDT [facility] ALT (SGPT) 24 10 - 60 unit/L LAB CHEMISTRY METHOD 04/01/2025 6:44 PM EDT [facility] Alkaline Phosphatase 76 42 - 121 unit/L LAB CHEMISTRY METHOD 04/01/2025 6:44 PM EDT [facility] Total Protein 7.0 6.0 - 8.0 g/dL LAB CHEMISTRY METHOD 04/01/2025 6:44 PM EDT [facility] Albumin 4.4 3.2 - 5.0 g/dL LAB CHEMISTRY METHOD 04/01/2025 6:44 PM EDT [facility] Total Bilirubin 1.0 0.0 - 1.4 mg/dL LAB CHEMISTRY METHOD 04/01/2025 6:44 PM EDT [facility] Blood Venous blood specimen / Unknown Venipuncture / Unknown 04/01/2025 12:11 PM EDT 04/01/2025 12:11 PM EDT us Sabrina Aguirre NP LAB BLOOD ORDERABLES Final Resul t [facility] [address] [place] [address], * (ABNORMAL) Lipid panel with reflex to direct LDL (10/14/2024 8:59 AM EDT) Cholesterol 168 0 - 200 mg/dL LAB CHEMISTRY METHOD 10/14/2024 1:03 PM EDT [facility] Triglycerides 194(H) 0 - 150 mg/dL LAB CHEMISTRY METHOD 10/14/2024 1:03 PM EDT [facility] HDL 44 >=40 mg/dL LAB CHEMISTRY METHOD 10/14/2024 1:03 PM EDT [facility] LDL Calculated 85 0 - 100 mg/dL LAB CHEMISTRY METHOD 10/14/2024 1:03 PM EDT [facility] VLDL Cholesterol [place] 38.8 mg/dL LAB CHEMISTRY METHOD 10/14/2024 1:03 PM EDT [facility] Non HDL Chol. (LDL+VLDL) 124 <145 mg/dL LAB CHEMISTRY METHOD 10/14/2024 1:03 PM EDT [facility] Chol/HDL Ratio 3.8 0.0 - 4.4 LAB CHEMISTRY METHOD 10/14/2024 1:03 PM EDT [facility] Blood Venous blood specimen / Unknown Venipuncture / Unknown 10/14/2024 8:59 AM EDT 10/14/2024 9:03 AM EDT Go Garland MD LAB BLOOD ORDERABLES Final Res ult [facility] [address] [place] [address], [place] [phone] * Microalbumin creatinine urine ratio (10/14/2024 8:59 AM EDT) Creatinine, Urine 288.0 mg/dL LAB CHEMISTRY METHOD 10/14/2024 1:27 PM EDT [facility] Microalb, Ur 22.4 0.0 - 29.0 mg/L LAB CHEMISTRY METHOD 10/14/2024 1:27 PM EDT [facility] Microalb/Creat Ratio 8 <30 mg/g creat LAB CHEMISTRY METHOD 10/14/2024 1:27 PM EDT [facility] Urine Urine specimen obtained by clean catch procedure / Unknown Non-blood Collection / Unknown 10/14/2024 8:59 AM EDT 10/14/2024 9:03 AM EDT us Chasity ALLEN LAB URINE ORDERABLES Final Resul t [facility] ([facility] [place] [address] [place] [address], * CT Lung Screening (08/29/2024 8:26 AM EST) Anatomical Region Laterality Modality Chest Computed Tomogra phy 09/02/2024 4:32 PM EST Impressions 09/02/2024 4:37 PM EST No suspicious pulmonary nodule. No significant change from the prior study. Lung RADS 1, recommend low-dose screening chest CT in 12 months -------- FINAL REPORT -------- Dictated By: Sunita Roman Dictated Date: 09/02/2024 16:32 ET Assigned Physician: Sunita Roman Reviewed and Electronically Signed By: Sunita Roman Signed Date: 09/02/2024 16:37 ET Workstation ID: [id number] Transcribed By: Self Edit Transcribed Date: 09/02/2024 16:32 ET Narrative 09/02/2024 4:37 PM EST INDICATION: Former smoker with 82 pack-year smoking history FINDINGS: Low-dose CT scan of the chest obtained as a lung cancer screening study. Scanner: AccuRever 128 slice VCT Dose reduction technique: ASIR (Adaptive statistical iterative reconstruction) and/or AEC (automated exposure control) Dose: total exam DLP 173 mGY per cm COMPARISON: Compared to multiple prior studies most recent from August 28, 2023 Lung: Similar elevation left hemidiaphragm with parenchymal scarring in the right lung base as well as calcification/postoperative changes along the diaphragm. No infiltrates or effusions. No new or suspicious pulmonary nodule. No lung masses. Lymph nodes: No thoracic lymphadenopathy. Mediastinum: Trachea and esophagus are within normal limits. Heart normal in size and shape without pericardial effusion. Interval placement of left atrial appendage. Mediastinal vascular structures are unchanged. 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 Osseous changes along the right chest wall possibly secondary to prior trauma or surgical procedure. Procedure Note Sunita Roman MD - 09/02/2024 INDICATION: Former smoker with 82 pack-year smoking history FINDINGS: Low-dose CT scan of the chest obtained as a lung cancerscreening study. Scanner: AccuRever 128 slice VCT Dose reduction technique: ASIR (Adaptive statistical iterativereconstruction) and/or AEC (automated exposure control) Dose: total exam DLP 173 mGY per cm COMPARISON: Compared to multiple prior studies most recent from 2023 Lung: Similar elevation left hemidiaphragm with parenchymal scarring inthe right lung base as well as calcification/postoperative changes alongthe diaphragm. No infiltrates or effusions. No new or suspicious pulmonarynodule. No lung masses. Lymph nodes: No thoracic lymphadenopathy. Mediastinum: Trachea and esophagus are within normal limits. Heart normal in size and shape without pericardial effusion. Intervalplacement of left atrial appendage. Mediastinal vascular structures are unchanged. Bony structures: Degenerative changes again noted with thoracicenthesopathy suggestive of dish. Osseous changes along the right chestwall possibly secondary to prior trauma or surgical procedure. IMPRESSION: No suspicious pulmonary nodule. No significant change from the prior study. Lung RADS 1, recommend low-dose screening chest CT in 12 months -------- FINAL REPORT -------- Dictated By: Sunita Roman Dictated Date: 09/02/2024 16:32 ET Assigned Physician: Sunita Roman Reviewed and Electronically Signed By: [place] Roman Signed Date: 09/02/2024 16:37 ET Workstation ID: [id number] Transcribed By: Self Edit Transcribed Date: 09/02/2024 16:32 ET Paul Gallegos MD IMG CT PROCEDURES Final Result * External Diabetic Retina Eye Exam Report (07/25/2024) Anatomical Region Laterality Modality Ultrasound us Provider [facility] IMG US PROCEDURES Final Result * Colonoscopy (09/18/2023) Colonoscopy No interpretation , abstracted Anatomical Region Laterality Modality Other Historical Provider HEALTH MAINTENANCE Final Result * US ABDOMINAL AORTA REAL TIME SCREEN STUDY AAA (04/16/2020 8:33 AM EDT) Anatomical Region Laterality Modality Ultrasound 04/01/2020 9:31 AM EDT Narrative 04/16/2020 8:53 AM EDT EXAM: Abdominal aorta ultrasound, AAA screening HISTORY: AAA screening. History of tobacco use. COMPARISON: None FINDINGS: Exam limited by patient body habitus. Proximal aorta measures 1.8 cm in maximal diameter. Mid aorta measures 2.0 cm. Distal aorta measures 2.0 cm. Proximal right common iliac artery measures 1.0 cm. Proximal left common iliac artery measures 1.3 cm. IMPRESSION: IMPRESSION: No evidence of an abdominal aortic aneurysm. POS - [id number] Procedure Note Zeynep Ray MD - 07/19/2022 EXAM: Abdominal aorta ultrasound, AAA screening HISTORY: AAA screening. History of tobacco use. COMPARISON: None FINDINGS: Exam limited by patient body habitus. Proximal aorta measures 1.8 cm inmaximal diameter. Mid aorta measures 2.0 cm. Distal aorta measures 2.0 cm. Proximal rightcommon iliac artery measures 1.0 cm. Proximal left common iliac artery measures 1.3 cm. IMPRESSION: IMPRESSION: No evidence of an abdominal aortic aneurysm. 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 Health Care Decision (hx) 03/22/2019 AD DUGGAN DIRECTIVE Health Care Decision (hx) 03/22/2019 AD DUGGAN DIRECTIVE Health Care Decision (hx) 03/22/2019 AD DUGGAN DIRECTIVE Health Care Decision (hx) 03/22/2019 AD DUGGAN DIRECTIVE Health Care Decision (hx) 03/22/2019 AD DUGGAN DIRECTIVE Health Care Decision (hx) 03/22/2019 AD DUGGAN DIRECTIVE Health Care Decision (hx) 03/22/2019 AD DUGGAN DIRECTIVE Health Care Decision (hx) 03/22/2019 AD DUGGAN DIRECTIVE Health Care Decision (hx) 03/22/2019 AD DUGGAN DIRECTIVE Health Care Decision (hx) 03/22/2019 AD DUGGAN DIRECTIVE Health Care Decision (hx) 03/22/2019 AD DUGGAN DIRECTIVE Health Care Decision (hx) 01/03/2014 AD DUGGAN DIRECTIVE Health Care Decision (hx) 01/03/2014 AD DUGGAN DIRECTIVE Health Care Decision (hx) 01/03/2014 AD DUGGAN DIRECTIVE Health Care Decision (hx) 01/03/2014 AD DUGGAN DIRECTIVE Health Care Decision (hx) 01/03/2014 AD DUGGAN DIRECTIVE Health Care Decision (hx) 01/03/2014 AD DUGGAN DIRECTIVE Health Care Decision (hx) 01/03/2014 AD DUGGAN DIRECTIVE Health Care Decision (hx) 01/03/2014 AD DUGGAN DIRECTIVE Health Care Decision (hx) 01/03/2014 AD DUGGAN DIRECTIVE Health Care Decision (hx) 01/03/2014 AD DUGGAN DIRECTIVE Health Care Decision (hx) 01/03/2014 AD DUGGAN DIRECTIVE Care Teams Manuscripts Curator Relationship Specialty Start Date End Date Go Garland MD [address] [place] [id number] PCP - General Internal Medicine 08/28/24
--- OUTSIDE RECORDS SUMMARY | 2025-06-25 14:23 | XMS_ITS | Clinical Summary ---
Author Organization [facility] Address [address] [place] [address] Care Team Providers Care Weave Defect Charting Clerk Name Role Phone Go Garland MD Primary Care Provider [phone] Allergies Active Allergy Reactions Criticality Noted Date Comments Sulfa Antibiotics 12/09/2014 itchiness Medications Medication Sig Dispensed Refills Start Date End Date Status albuterol (PROVENTIL HFA;VENTOLIN HFA) 108 (90 Base) MCG/ACT inhaler Inhale 2 puffs into the lungs. 0 08/24/2018 Active budesonide-formoter ol (SYMBICORT) 160-4.5 MCG/ACT inhaler Inhale 2 puffs into the lungs. 0 08/24/2018 Active omeprazole (PriLOSEC) 20 MG capsule Take 20 mg by mouth. 0 Active amLODIPine (NORVASC) tablet 2.5 mg Take 2.5 mg by mouth daily. 5 02/21/2019 Active metFORMIN (GLUCOPHAGE) tablet 1000 mg Take 1,000 mg by mouth 2 (two) times a day with meals. 0 11/07/2019 Active olmesartan (BENICAR) tablet 40 mg Take 40 mg by mouth daily. 0 05/01/2020 Active glimepiride (AMARYL) tablet 2 mg TAKE 1 TAB BY MOUTH EVERY MORNING (BEFORE BREAKFAST) 0 10/16/2020 Active levalbuterol (Xopenex) 0.63 MG/3ML nebulizer solution Inhale 0.63 mg into the lungs. 0 08/13/2020 Active amoxicillin (AMOXIL) 500 MG tablet Take 4 tabs 1 hour prior to dental appointment 20 tablet 3 09/27/2021 Active predniSONE (DELTASONE) tablet 20 mg Take 1 tablet by mouth 2 (two) times a day. for 7 days 0 09/13/2021 Active lidocaine (Lidoderm) 5 % Apply topically. 0 09/08/2021 Acti ve ibuprofen 600 MG tablet TAKE 1 TABLET BY MOUTH EVERY 6 HOURS NEEDED FOR PAIN FOR 10 DAYS W/FOOD OR MILK_MAX 5 PER DAY_ 0 09/08/2021 Active Acetaminophen Extra Strength 500 MG tablet TAKE 2 TABLETS BY MOUTH EVERY 6 HOURS NEEDED FOR MODERATE PAIN FOR 10 DAYS MAX 8 PER DAY 0 09/08/2021 Active ALBUTEROL IN Inhale into the lungs. 0 12/05/2011 Active Active Problems Problem Noted Date Diagnosed Date Cervical radiculopathy 03/25/2021 Chronic pain of right knee 05/01/2019 Arthritis of right ankle 04/11/2019 Arthritis of knee, right 11/29/2018 Family History Medical History Relation Name Comments Diabetes Father Relation Name Status Comments Father Social History Tobacco Use Types Packs/Day Years Used Date Smoking Tobacco: Former Smokeless Tobacco: Never Alcohol Use Standard Drinks/Week Comments Yes 0 (1 standard drink = 0.6 oz pur e alcohol) Sex and Gender Information Value Date Recorded Sex Assigned at Male 03/22/2021 2:37 PM EDT Gender Identity Not on file Sexual Orientation Not on file Job Start Date Occupation Industry Not on file Not on file Not on file Last Filed Vital Signs Vital Sign Reading Time Taken Comments Blood Pressure 163/88 03/25/2021 1:55 PM EDT Pulse 97 03/25/2021 1:55 PM EDT Temperature 36.7 C (98 F) 03/25/2021 2:03 PM EDT Respiratory Rate 24 03/25/2021 1:55 PM EDT Oxygen Saturation 98% 03/25/2021 1:55 PM EDT Inhaled Oxygen Concentration - - Weight 127.5 kg (281 lb) 03/18/2021 12:10 PM EDT Height 180.3 cm (5' 11 ) 03/18/2021 12:10 PM EDT Body Mass Index 39.19 03/18/2021 12:10 PM EDT Plan of Treatment Health Maintenance Due Date Last Done Comments Hepatitis C Screening 1954 Depression Screening 1966 BMI Counseling 01/24/1972 Preventative Health Evaluation 01/24/1972 Colon Cancer Screening (Colonoscopy) 1999 Shingrix-Zoster Vaccine (1 of 2) 01/24/2004 Fall Risk Assessment 2019 Pneumococcal Vaccine (3 of 3 - PPSV23 or PCV20) 04/18/2021 04/18/2016, 04/22/2015, 12/22/2011 COVID-19 Vaccine (4 - season) 2025 04/06/2021, 11/10/2020, 10/19/2020 Influenza Vaccine (#1) 2025 , 04/27/2020, 06/05/2019, Additional history exists DTap / Tdap / Td (3 - Td or Tdap) 06/19/2028 06/19/2018, 08/04/2006 RSV Adult > 60+ Yrs or (1 - 1-dose 75+ series) 2029 Hepatitis B Vaccines Aged Out No long er eligible based on patient's age to complete this topic RSV Ped < 20 months Aged Out No longe r eligible based on patient's age to complete this topic Care Teams Weave Defect Charting Clerk Relationship Specialty Start Date End Date Go Garland MD PCP - General Internal Medicine 11/14/18
--- OUTSIDE RECORDS SUMMARY | 2025-06-25 14:23 | XMS_ITS ---
Author Name [facility] [place] [facility] Organization Unknown Care Team Organization Name Specialty Phone Email Start Date End Da te [facility] 03/19/2025 [facility] Chasity Pham Primary Care 01/06/2023 03/18/20 [facility] Go Garland Primary Care 06/07/2022 03/18/20 24
== END 2025-06-25 12:24 | disposition home or self-care (01) ==
LOC: HO.HPHYS 11:27
PROVIDERS: PCP Internal Medicine; Visit Provider Physician Assistant
DX: M54.16 Radiculopathy, lumbar region (principal); M25.811 Other specified joint disorders, right shoulder; M77.11 Lateral epicondylitis, right elbow
CPT/HCPCS: 20605; 20610; 99214

== ENCOUNTER → 2025-06-25 11:27 | Outpatient (BNVA) | payer MEDICARE, OTHER, SELFPAY | PROVIDERS: PCP Internal Medicine; Visit Provider Physician Assistant | DX: M54.16 Radiculopathy, lumbar region (principal); M25.811 Other specified joint disorders, right shoulder; G89.29 Other chronic pain; M77.11 Lateral epicondylitis, right elbow | CPT/HCPCS: 20605; 20610; 99212; J2003; J3301 ==